=== PATIENT | male | born 1955 | race Caucasian/White ===

== ENCOUNTER → 2016-11-11 | Outpatient (CLI) | payer OTHER ==
[2016-11-11 12:14] LABS: URINE BILIRUBIN - DIPSTICK NEGATIVE (NEG); URINE BLOOD NEGATIVE (NEG)
[2016-11-11 12:23] LABS: BUN 14 mg/dL (7-18)
[2016-11-11 12:24] LABS: GFR (ESTIMATED) 98 ML/MIN (>60)
[2016-11-11 13:08] LABS: HEMOGLOBIN 16.1 g/dL (14.1-18.0); LYMPH % 25.8 % (10-50)
[2016-11-11 13:09] LABS: LYMPH # 1.4 K/mm3 (0.7-4.5)
[2016-11-13 05:36] LABS: HBsAg Screen Negative (Negative); Hep A Ab, IgM Negative (Negative); Hep B Core Ab, IgM Negative (Negative); Hep C Virus Ab >11.0 (0.0-0.9)
== END ==
LOC: LAB 09:33
PROVIDERS: Internal Medicine Adolescent Medicine
DX: R82.99 Other abnormal findings in urine (principal); R53.83 Other fatigue; R74.8 Abnormal levels of other serum enzymes

== ENCOUNTER → 2016-12-03 | Outpatient (CLI) | payer OTHER ==
--- NOTE | 2016-12-03 09:48 | RADIOLOGY REPORT PS360 ---
US RUQ-(ABD LTD)1ORGAN/QUAD/FU HISTORY: Hepatitis C HEP C ORDERING PHYSICIAN: CARIDAD PRINCE APRN PATIENT AGE: 61 years COMPARISON: None FINDINGS: PANCREAS:Unremarkable. No obvious mass or abnormal fluid collection. No ductal dilatation LIVER:No focal liver lesions demonstrated. Homogeneous echogenicity. No intrahepatic biliary ductal dilatation evident. Portal vein is not enlarged. The appropriate correction of blood flow within the portal vein. Liver slightly enlarged measuring 24 cm in transverse dimension RIGHT KIDNEY:Unremarkable. Normal size and echogenicity. No hydronephrosis GALLBLADDER:No gallstones, gallbladder wall thickening, pericholecystic fluid, or biliary dilatation. There is a small amount sludge/concentrated bile within the gallbladder IMPRESSION: 1. Mild hepatomegaly. 2. Mild amount of gallbladder sludge/concentrated bile otherwise negative right upper quadrant ultrasound
== END ==
LOC: RAD 08:00
DX: B18.2 Chronic viral hepatitis C (principal)

== ENCOUNTER → 2017-01-12 | Outpatient (CLI) | payer OTHER | LOC: LAB 15:36 | DX: B18.2 Chronic viral hepatitis C (principal) ==

== ENCOUNTER → 2017-02-01 | Outpatient (CLI) | payer OTHER ==
[2017-02-01 17:01] LABS: HEMOGLOBIN 15.8 g/dL (14.1-18.0); LYMPH # 2.3 K/mm3 (0.7-4.5)
[2017-02-01 17:35] LABS: BUN 18 mg/dL (7-18)
[2017-02-01 17:37] LABS: GFR (ESTIMATED) 56 ML/MIN (>60)
== END ==
LOC: LAB 15:34
PROVIDERS: Nurse Practitioner Acute Care
DX: B18.2 Chronic viral hepatitis C (principal)